=== PATIENT | female | born 1965 | race Caucasian/White ===

== ENCOUNTER → 2018-07-23 14:05 | Outpatient (CLI) | payer OTHER ==
--- NOTE | 2018-07-27 14:01 | EC ---
PATIENT:SOUMYA MCINTYRE DATE OF SERVICE: 07/23/18 SEX: F MEDICAL RECORD: [id number] DATE OF : [birth year] [facility] AGE OF PATIENT: 53 ADMISSION DATE: 07/23/18 REFERRING PHYSICIAN: INTERPRETING PHYSICIAN: GUME VEGA MD ECHOCARDIOGRAM REPORT ECHO CHARGES 4 ECHO COMPLETE Date: 07/23/18 CLINICAL DIAGNOSIS: SOB ECHOCARDIOGRAPHIC MEASUREMENTS (adult normal given) AC root (d.<3.7cm) 3.5 cm LV Septum d (<1.2 cm> 1.3 cm Valve Excursion 2.1 cm LV Septum (systole) 1.5 cm Left Atria (s.<4.0cm> 3.7 cm LVPW d(<1.2cm) 1.2 cm RV (d.<2.3cm) 3.4 cm LVPW (sytole) 1.6 cm LV diastole(<5.6CM) 4.8 cm MV E-F(>70mm/sec) cm LV systole 3.0 cm LVOT Diameter 2.0 cm MV exc.(>10mm) 1.4 cm Est.ejection fraction (50-75%) % DOPPLER: LVIT cm/sec A 49.0 cm/sec E 70.0 cm/sec LA cm/sec RVSP 21 mmHg LVOT 112 cm/sec AOP1/2T m/s Asc. Ao 184 cm/sec RVOT 77 cm/sec RA cm/sec PA 118 cm/sec AV Gradient Peak 13.49mmHg AV Mean 7.42 mmHg AV Area 2.0 cm MV Gradient Peak 3.18 mmHg MV Mean 0.99 mmHg MV Area cm COMMENTS: Digital Photographic Printer: 2 PARUL GUERRERO Consulting Property Manager: 3 Dr. Gibbons TAPE# PACS Pericardial Effusion N DATE OF SERVICE: 07/23/2018 Adequate 2-D echo, color flow and spectral Doppler, and M-Mode. Borderline LVH. LV internal dimension is normal. Wall motion is normal. EF is greater than or equal to 55%. Aortic valve sclerosis without stenosis by Doppler interrogation. Left atrium is normal at 3.7 cm. Mitral valve shows no prolapse. Trace MR. Right-sided chamber is normal. Trace TR. TRANSINT:[id number] Voice Confirmation ID: [id number] DOCUMENT ID: [id number] ECHOCARDIOGRAM REPORT [id number] SOUMYA MCINTYRE,GUME Davila MD at 1401 CC: [id number] DICTATION DATE: 07/24/18 1236 BEAD INSPECTOR: 07/24/18 1423 DEP CLI 07/23/18 [id number] [place] [id number]
== END | disposition home or self-care (01) ==
LOC: D.HCCARDIO 14:05
PROVIDERS: ATTEND Internal Medicine Interventional Cardiology
DX: R06.02 Shortness of breath (principal)